=== PATIENT | female | born 1975 | race African-American/Black ===

== ENCOUNTER 2017-01-20 03:11 | Emergency (ER) | payer OTHER ==
[2017-01-20] MEDS ORDERED: DEXAMETHASONE 10 MG/ML VIAL ONE (03:37)
[2017-01-20] MEDS ORDERED: CHERRY SYRUP 10 ML UDC PO ONE (03:37)
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
[2017-01-20] MEDS ORDERED: DEXAMETHASONE 10 MG/ML VIAL PO STA (03:49)
== END 2017-01-20 03:53 | disposition home or self-care (01) ==
LOC: ED 03:11
DX: L24.1 Irritant contact dermatitis due to oils and greases (principal)
CPT/HCPCS: 99283; A9270

== ENCOUNTER 2019-01-01 08:58 | Emergency (ER) | payer OTHER ==
[2019-01-01 09:18] VITALS: BP 137/71
--- NOTE | 2019-01-01 10:09 | XRAY Report ---
Reason: R ankle pain, s/p trip and fall Procedure Date: 01/01/2019 Accession Number: [id number] / [id number] Procedure: XR - Ankle 3 View RT CPT Code: Final Report FULL RESULT: EXAM: RIGHT ANKLE RADIOGRAPHY EXAM DATE: 01/01/2019 09:45 AM. CLINICAL HISTORY: R ankle pain, s/p trip and fall. COMPARISON: None. TECHNIQUE: 3 views. FINDINGS: Bones: Normal. No fractures or bone lesions. Joints: Normal. No effusion. No subluxations. The ankle mortise is normally aligned. Soft Tissues: Soft tissue swelling. IMPRESSION: Normal ankle radiography. [facility]
[2019-01-01] MEDS ORDERED: HYDROcod/ACETAM 5/325 MG TABLET PO STA (10:23)
[2019-01-01] MEDS ORDERED: ONDANSETRON ODT 4 MG TABLET TL STA (10:24)
--- NOTE | 2019-01-01 10:25 | ED Physician Documentation ---
PD HPI LOWER EXT INJURY - Stated complaint Stated Complaint: R ANKLE INJURY - Chief complaint Chief Complaint: Ext Problem - History obtained from History obtained from: Patient - History of Present Illness PD HPI LOW EXT INJURY LOCATION: Right, Ankle Type of injury: Twist Where injury occurred: Home Timing - onset: Today Timing - duration: Hours (2) Timing - details: Abrupt onset Pain level max: 8 Pain level now: 8 Improved by: Rest, Ice, Immobilization Worsened by: Moving, Palpating Associated symptoms: Swelling. 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 - Present Medications Home Medications: Ambulatory Orders Medication Instructions Recorded Confirmed Budesonide/Formoterol Fumarate 1 puffs ORAL PRN PRN 01/20/17 01/20/17 [Symbicort 80-4.5 Mcg Inhaler] Cetirizine [ZyrTEC] 1 tab PO DAILY 01/20/17 01/20/17 Fluticasone [Flonase] 1 puffs .ROUTE DAILY 01/20/17 01/20/17 Fluticasone/Salmeterol [Advair 1 puffs PO BID 01/20/17 01/20/17 100-50 Diskus] Montelukast Sodium [Singulair] 1 tab PO DAILY 01/20/17 01/20/17 No122/Iron/Folic Acid 1 tab PO DAILY 01/20/17 01/20/17 [ Multi Tablet] Hydrocodone/Acetaminophen 1 - 2 each PO Q6H PRN #10 tablet 01/01/19 [Hydrocodon-Acetaminophen 5-325] Ondansetron Odt [Zofran] 4 mg TL Q6H PRN #10 tablet 01/01/19 - Allergies Allergies/Adverse Reactions: Allergies Allergy/AdvReac Type Severity Reaction Status Date / Time codeine Allergy Nausea Verified 01/01/19 09:52 Penicillins Allergy Nausea Verified 01/01/19 09:52 - Social History Does the pt smoke?: No Smoking Status: Never smoker Does the pt have substance abuse?: No - Immunizations Immunizations are current?: Yes PD ED PE NORMAL - Vitals Vital signs reviewed: Yes - General General: Alert and oriented X 3, No acute distress - HEENT HEENT: Moist mucous membranes - Neck Neck: Supple, no meningeal sign - Derm Derm: Warm and dry - Extremities Extremities: Other (Tender to palpation over the lateral malleolus of the right ankle. No tenderness on the medial malleolus. No tenderness over the remainder of the foot, ankle or proximal tibia and fibula. Neurovascularly intact.) - Neuro Neuro: Alert and oriented X 3 Results - Vitals Vitals: Vital Signs - 24 hr 01/01/19 09:16 Temperature 36.8 C Heart Rate 72 Respiratory 16 Rate Blood Pressure 137/71 H O2 Saturation 100 Oxygen O2 Source Room air - Rads (name of study) Right ankle x-ray Radiology: Prelim report reviewed, EMP read contemporaneously, See rad report (Normal) PD MEDICAL DECISION MAKING - ED course Complexity details: reviewed results, considered differential, d/w patient ED course: Patient with a right ankle sprain. Given crutches and an Aircast. We will have her follow-up with her doctor for further care. Neurovascularly intact. Negative x-ray. Patient counseled regarding signs and symptoms for which I believe and urgent re-evaluation would be necessary. Patient with good understanding of and agreement to plan and is comfortable going home at this time This document was made in part using voice recognition software. While efforts are made to proofread this document, sound alike and grammatical errors may occur. Departure - Departure Disposition: 01 Home, Self Care Clinical Impression: Right ankle sprain Qualifiers: Encounter type: initial encounter Involved ligament of ankle: unspecified ligament Qualified Code(s): S93.401A - Sprain of unspecified ligament of right ankle, initial encounter Condition: Good Instructions: ED Sprain Ankle Follow-Up: your,doctor in 1 week [Other] Prescriptions: Hydrocodone/Acetaminophen [Hydrocodon-Acetaminophen 5-325] 1 - 2 each PO Q6H PRN #10 tablet PRN Reason: pain Ondansetron Odt [Zofran] 4 mg TL Q6H PRN #10 tablet PRN Reason: Nausea / Vomiting Comments: Follow-up with your doctor for further care. Return if you worsen. You may bear weight as tolerated. If you are still having pain in 1 week, you should have repeat x-rays with your doctor. Your x-rays do not show any fractures today. Discharge Date/Time: 01/01/19 10:51
== END 2019-01-01 10:51 | disposition home or self-care (01) ==
LOC: ED 08:58
DX: S93.401A Sprain of unspecified ligament of right ankle, initial encounter (principal); W01.0XXA Fall on same level from slipping, tripping and stumbling without subsequent striking against object, initial encounter; X50.1XXA Overexertion from prolonged static or awkward postures, initial encounter; Y93.01 Activity, walking, marching and hiking; Y92.009 Unspecified place in unspecified non-institutional (private) residence as the place of occurrence of the external cause
CPT/HCPCS: 73610; 99283; 99284; A9270; Q0162